=== PATIENT | female | born 1960 | race Caucasian/White ===

== ENCOUNTER → 2024-04-02 | Outpatient (CLI) | payer OTHER | END | disposition home or self-care (01) | LOC: CARD DIAG 11:16 | PROVIDERS: ATTEND Internal Medicine Cardiovascular Disease | DX: I08.0 Rheumatic disorders of both mitral and aortic valves (principal) | CPT/HCPCS: 93306 ==

== ENCOUNTER 2024-04-17 11:12 | Day surgery (SDC) | payer OTHER ==
[~2024-04-17] VITALS: Ht 165.1 cm; Wt 120.3 kg
[2024-04-17] VITALS (11 sets, daily range): BP systolic 107–141; BP diastolic 48–74; PULSE 58–63; RESP 14–19; TEMP 97.5; O2SAT 93–96
[2024-04-17] MEDS ORDERED: nitroGLYCERIN 0.4mg SUBLingual tab SL PRN (11:35)
[2024-04-17] MEDS: normal saline 1,000 ML IV SCH (11:40)
[2024-04-17 12:06] LABS: BASOPHILS % (AUTO) 0.4 % (0-1); EOSINOPHILS % (AUTO) 0.6 % (0-6); HEMATOCRIT 40.6 % (35.0-45.0); HEMOGLOBIN 13.3 g/dl (12.0-16.0); MEAN CORPUSCULAR HEMOGLOBIN 29.2 PG (27.0-31.0); MEAN CORPUSCULAR HGB CONC 32.8 g/dL (33.0-36.5); MEAN CORPUSCULAR VOLUME 89.1 FL (78-98); MEAN PLATELET VOLUME 7.3 FL (7.4-10.4); MONOCYTES # (AUTO) 0.4 X10'3 (0-0.9); MONOCYTES % (AUTO) 6.5 % (2-12); NEUTROPHILS # (AUTO) 4.2 X10'3 (1.8-7.7); NEUTROPHILS % (AUTO) 62.5 % (42-75); PLATELET COUNT 218 X10'3 (140-440); RED BLOOD COUNT 4.56 X10'6 (4.20-5.60); RED CELL DISTRIBUTION WIDTH 15.8 % (11.5-14.5); WHITE BLOOD COUNT 6.8 X10'3 (4.5-11.0)
[2024-04-17] MEDS ORDERED: FURO40TA4 PO (12:14)
[2024-04-17] MEDS ORDERED: DIVA500T9 PO (12:14)
[2024-04-17] MEDS ORDERED: ZINC7.5T (12:14)
[2024-04-17] MEDS ORDERED: OMEG-42 PO (12:14)
[2024-04-17] MEDS ORDERED: POTA-366 PO (12:14)
[2024-04-17] MEDS ORDERED: ATOR20TA66 PO (12:14)
[2024-04-17] MEDS ORDERED: GARL500C2 (12:14)
[2024-04-17] MEDS ORDERED: LISI10TA27 PO (12:14)
[2024-04-17] MEDS ORDERED: LACT1CAP73 PO (12:14)
[2024-04-17] MEDS ORDERED: ZIPR80CA10 PO (12:14)
[2024-04-17] MEDS ORDERED: LEVO100T9 PO (12:14)
[2024-04-17 12:21] LABS: ALBUMIN 3.6 G/DL (3.4-5.0); ANION GAP 10 (8-16); APTT 26 SECONDS (22-32); BLOOD UREA NITROGEN 23 MG/DL (7-18); BUN/CREATININE RATIO 22.8 (10.0-20.0); CALCIUM 9.6 MG/DL (8.5-10.1); CHLORIDE 104 MMOL/L (99-107); CREATININE 1.01 MG/DL (0.40-0.90); GLUCOSE 108 MG/DL (70-104); POTASSIUM 4.4 MMOL/L (3.5-5.1); SODIUM 141 MMOL/L (135-145); TOTAL CARBON DIOXIDE 26.6 MMOL/L (24-32); eCRCL 52 ML/MIN; eGFR 56 ML/MIN
[2024-04-17] MEDS ORDERED: fentaNYL/PF 50MCG/1 ML 2ML syringe ONE ×2 (13:29→14:05)
[2024-04-17] MEDS ORDERED: iohexol 350MG/ML 100ml bottle IV ONE ×2 (13:29→14:25)
[2024-04-17] MEDS ORDERED: midazolam 1 mg/ML 2ml injection ONE ×2 (13:29→14:04)
[2024-04-17] MEDS ORDERED: LIDOcaine 1% 30ml preserv. free vial ONE (13:29)
[2024-04-17] MEDS ORDERED: iohexol 350 MG/ML 50ML vial IV ONE (13:29)
[2024-04-17] MEDS: diphenhydrAMINE 25mg capsule PO PRN (13:39)
[2024-04-17] MEDS: LORazepam 0.5 MG tablet PO PRN (13:40)
== END 2024-04-17 19:45 | disposition home or self-care (01) ==
LOC: SSTAY O 11:12
PROVIDERS: ATTEND Internal Medicine Cardiovascular Disease
DX: I35.0 Nonrheumatic aortic (valve) stenosis (principal); I25.10 Atherosclerotic heart disease of native coronary artery without angina pectoris; I11.9 Hypertensive heart disease without heart failure; E78.5 Hyperlipidemia, unspecified; E03.9 Hypothyroidism, unspecified; E66.01 Morbid (severe) obesity due to excess calories; J44.9 Chronic obstructive pulmonary disease, unspecified; F31.9 Bipolar disorder, unspecified; Z86.73 Personal history of transient ischemic attack (TIA), and cerebral infarction without residual deficits; Z79.890 Hormone replacement therapy; Z79.899 Other long term (current) drug therapy; Z68.41 Body mass index [BMI] 40.0-44.9, adult
CPT/HCPCS: 36415; 71046; 80048; 83880; 85025; 85610; 85730; 93005; 93458; 93567; 93880; 99152; 99153; J1644; J2250; J3010; J3490; J7030; Q0163; Q9967; A6258; C1760; C1769

== ENCOUNTER 2024-05-23 10:36 | Outpatient (CLI) | payer OTHER ==
[~2024-05-23 10:36] MED LIST: ATOR20TA66 PO; DIVA500T9 PO; FURO40TA4 PO; GARL500C6; LACT1CAP73 PO; LEVO100T9 PO; LISI10TA27 PO; OMEG-42 PO; POTA-366 PO; ZINC7.5T; ZIPR80CA10 PO
[2024-05-23 11:10] LABS: BASOPHILS # (AUTO) 0.1 X10'3 (0-0.2); EOSINOPHILS # (AUTO) 0.1 X10'3 (0-0.9); EOSINOPHILS % (AUTO) 1.2 % (0-6); HEMATOCRIT 38.9 % (35.0-45.0); HEMOGLOBIN 12.9 g/dl (12.0-16.0); LYMPHOCYTES # (AUTO) 2.2 X10'3 (1.1-4.8); LYMPHOCYTES % (AUTO) 31.4 % (21-51); MEAN CORPUSCULAR HEMOGLOBIN 29.3 PG (27.0-31.0); MEAN CORPUSCULAR HGB CONC 33.2 g/dL (33.0-36.5); MEAN CORPUSCULAR VOLUME 88.2 FL (78-98); MONOCYTES # (AUTO) 0.5 X10'3 (0-0.9); MONOCYTES % (AUTO) 6.6 % (2-12); NEUTROPHILS # (AUTO) 4.1 X10'3 (1.8-7.7); NEUTROPHILS % (AUTO) 59.8 % (42-75); PLATELET COUNT 247 X10'3 (140-440); RED BLOOD COUNT 4.41 X10'6 (4.20-5.60); RED CELL DISTRIBUTION WIDTH 16.1 % (11.5-14.5); WHITE BLOOD COUNT 6.9 X10'3 (4.5-11.0)
[2024-05-23 11:21] LABS: APTT 26 SECONDS (22-32); PROTHROMBIN TIME 9.8 SECONDS (9.0-12.0)
[2024-05-23] MEDS ORDERED: IODIXANOL 320 MG/ML INFUS..BTL 100ML IV ONE (11:23)
[2024-05-23 11:26] LABS: ALANINE AMINOTRANSFERASE 21 U/L (12-78); ALBUMIN 3.5 G/DL (3.4-5.0); ALBUMIN/GLOBULIN RATIO 0.9 (1.1-1.5); ALKALINE PHOSPHATASE 62 IU/L (46-116); ANION GAP 8 (8-16); ASPARTATE AMINO TRANSFERASE 15 U/L (10-37); BILIRUBIN,TOTAL 0.6 MG/DL (0.1-1.0); BLOOD UREA NITROGEN 18 MG/DL (7-18); BUN/CREATININE RATIO 18.4 (10.0-20.0); CALCIUM 9.5 MG/DL (8.5-10.1); CHLORIDE 106 MMOL/L (99-107); CREATININE 0.98 MG/DL (0.40-0.90); GLUCOSE 107 MG/DL (70-104); POTASSIUM 4.5 MMOL/L (3.5-5.1); SODIUM 143 MMOL/L (135-145); TOTAL CARBON DIOXIDE 28.7 MMOL/L (24-32); TOTAL PROTEIN 7.4 G/DL (6.4-8.2); eGFR 58 ML/MIN
[2024-05-23 11:53] LABS: INR 0.9 INR
== END 2024-05-23 23:59 | disposition home or self-care (01) ==
LOC: 64 CT 10:36
PROVIDERS: ATTEND Internal Medicine Cardiovascular Disease
DX: I35.0 Nonrheumatic aortic (valve) stenosis (principal); R06.02 Shortness of breath; I65.29 Occlusion and stenosis of unspecified carotid artery; R91.1 Solitary pulmonary nodule; Z90.49 Acquired absence of other specified parts of digestive tract
CPT/HCPCS: 36415; 71275; 74174; 75572; 80053; 85025; 85610; 85730; Q9967

== ENCOUNTER 2024-07-05 05:45 | Inpatient (IN) | payer OTHER ==
[2024-07-03 15:21] LABS: BASOPHILS % (AUTO) 0.5 % (0-1); EOSINOPHILS # (AUTO) 0.1 X10'3 (0-0.9); EOSINOPHILS % (AUTO) 0.8 % (0-6); LYMPHOCYTES # (AUTO) 2.2 X10'3 (1.1-4.8); MEAN CORPUSCULAR HGB CONC 33.4 g/dL (33.0-36.5); MEAN CORPUSCULAR VOLUME 89.9 FL (78-98); MEAN PLATELET VOLUME 7.2 FL (7.4-10.4); MONOCYTES # (AUTO) 0.5 X10'3 (0-0.9); MONOCYTES % (AUTO) 6.4 % (2-12); NEUTROPHILS # (AUTO) 4.5 X10'3 (1.8-7.7); NEUTROPHILS % (AUTO) 62.3 % (42-75); PRE OP HEMATOCRIT 39.6 % (35.0-45.0); PRE OP HEMOGLOBIN 13.2 g/dL (12.0-16.0); PRE OP PLATELET COUNT 261 X10'3 (140-440); PRE OP WHITE BLOOD COUNT 7.2 10'3 (4.8-10.8); RED CELL DISTRIBUTION WIDTH 15.7 % (11.5-14.5)
[2024-07-03 15:23] LABS: BILIRUBIN,URINE NEGATIVE (Neg); CLARITY,URINE SLIGHTLY CLOUDY (Clear); COLOR,URINE YELLOW (Yellow); GLUCOSE, URINE NEGATIVE (Neg); KETONES,URINE 15 mg/dl (Neg); LEUKOCYTE ESTERASE ,URINE TRACE (Neg); NITRITES, URINE NEGATIVE (Neg); OCCULT BLOOD,URINE TRACE-INTACT (Neg); PROTEIN,URINE NEGATIVE (Neg); UROBILINOGEN,URINE 0.2 E.U/dL (0.2-1.0)
[2024-07-03 15:26] LABS: UA COLLECTION TYPE CLN CATCH MIDSTREAM
[2024-07-03 15:30] LABS: SQUAMOUS EPITHELIAL CELL,UR MANY /LPF (FEW)
[2024-07-03 15:31] LABS: BACTERIA,URINE FEW /HPF (Neg); RBC,URINE 0-2 /HPF (0-2); WBC,URINE 0-4 /HPF (0-4)
[2024-07-03 15:53] LABS: PRE OP INR 0.9 INR; PRE OP PROTIME 9.8 SECONDS (9.0-12.0)
[2024-07-03 16:01] LABS: ALBUMIN 3.6 G/DL (3.4-5.0); ALBUMIN/GLOBULIN RATIO 0.9 (1.1-1.5); ALKALINE PHOSPHATASE 67 IU/L (46-116); BLOOD UREA NITROGEN 23 MG/DL (7-18); BUN/CREATININE RATIO 26.1 (10.0-20.0); CALCIUM 9.4 MG/DL (8.5-10.1); CHLORIDE 105 MMOL/L (99-107); CREATININE 0.88 MG/DL (0.40-0.90); PRE OP ALT 23 U/L (30-65); PRE OP ANION GAP 9 (8-16); PRE OP AST 18 U/L (10-37); PRE OP BILIRUB, TOTAL 0.4 MG/DL (0.0-1.0); PRE OP GLUCOSE 99 MG/DL (70-104); PRE OP POTASSIUM 4.7 MMOL/L (3.4-5.1); PRE OP SODIUM 143 MMOL/L (135-145); PRO BRAIN NATRIURETIC PEPTIDE 222 PG/ML (0-125); TOTAL CARBON DIOXIDE 29.1 MMOL/L (24-32); TOTAL PROTEIN 7.6 G/DL (6.4-8.2); eGFR 65 ML/MIN
[2024-07-05] VITALS (15 sets, daily range): BP systolic 117–147; BP diastolic 64–109; PULSE 57–77; RESP 10–22; TEMP 97.2–98.2; O2SAT 93–99
[~2024-07-05] VITALS: Ht 165.1 cm; Wt 120.2 kg
[2024-07-05] MEDS: ringers solution, lacted 1,000 ML IV SCH (05:30)
[2024-07-05] MEDS: nitroPRUSSIDE (NIPRIDE) (200MCG/ML) 100ML Drip IV SCH (05:30)
[2024-07-05] MEDS: phenylephrine inj 50 MG in normal saline 250ml IV solN IV SCH (05:30)
[~2024-07-05 05:45] MED LIST changes: -GARL500C6; -LACT1CAP73 PO; -ZINC7.5T; +ZIPR20CA12 PO; -ZIPR80CA10 PO; +ondansetron/PF 4mg/2ml inj IV PRN
[2024-07-05] MEDS: Cefazolin 3 GM/100ML NS IVPB 100 ML IV ONE (06:05)
[2024-07-05] MEDS: aspirin 325mg tablet PO ONE (06:55)
[2024-07-05] MEDS: famotidine 20mg tablet PO ONE (06:55)
[2024-07-05] MEDS: vancomycin 1,500 MG in NS 300ml IV soln IV ONE (06:55)
[2024-07-05] MEDS: protamine sulfate 10mg/ml inj. ONE (07:44)
[2024-07-05] MEDS ORDERED: LIDOcaine 1% (10mg/ml) 2ml vial ONE ×2 (08:21→08:42)
[2024-07-05] MEDS ORDERED: midazolam 1 mg/ML 2ml injection ONE (08:24)
[2024-07-05] MEDS ORDERED: fentaNYL/PF 50MCG/1 ML 2ML syringe ONE (08:24)
[2024-07-05] MEDS ORDERED: heparin 1,000 UNITS/NS 500ml 1,500 ML ONE (08:39)
[2024-07-05] MEDS ORDERED: iohexol 350MG/ML 100ml bottle IV ONE (08:39)
[2024-07-05] MEDS ORDERED: sevoflurane 250ml liquid IH ONE (08:40)
[2024-07-05] MEDS ORDERED: heparin 1,000unit/ml 10ml vial 10 ML ONE (09:05)
[2024-07-05] MEDS ORDERED: propofol inj 20 ML IV ONE (09:05)
[2024-07-05] MEDS ORDERED: proCHLORperazine 10 MG/2 ml inj IV PRN (10:00)
[2024-07-05] MEDS ORDERED: magnesium sulf-water 4G/100mL 100 ML IV PRN (10:00)
[2024-07-05] MEDS ORDERED: potassium Cl 20mEq/100mL bag 100 ML IV PRN (10:00)
[2024-07-05] MEDS ORDERED: hydrALAZINE 20mg/ml inj. IV PRN (10:00)
[2024-07-05] MEDS ORDERED: ALPRAZolam 0.25mg tablet PO PRN (10:00)
[2024-07-05] MEDS ORDERED: pantoprazole 40mg Tablet.DR PO PRN (10:00)
[2024-07-05] MEDS ORDERED: potassium CL 10mEq/100ml bag 100 ML IV PRN (10:00)
[2024-07-05] MEDS ORDERED: potassium Cl 40MEQ/1/2NS 520ml 520 ML IV PRN (10:00)
[2024-07-05] MEDS ORDERED: potassium Cl 40MEQ/270ML bag 250 ML IV PRN (10:00)
[2024-07-05] MEDS ORDERED: magnesium sulf-water 2g/50mL 50 ML IV PRN (10:00)
[2024-07-05] MEDS ORDERED: labetalol 20mg/4ml (5mg/ml) syringe IV PRN (10:00)
[2024-07-05] MEDS ORDERED: diphenhydrAMINE 25mg capsule PO PRN (10:00)
[2024-07-05] MEDS: normal saline 1000ml 1,000 ML IV SCH (10:00)
[2024-07-05] MEDS ORDERED: potassium Cl 20 mEq SR tablet PO PRN (10:00)
[2024-07-05] MEDS ORDERED: docusate sod 100mg capsule PO PRN (10:00)
[2024-07-05] MEDS ORDERED: ondansetron/PF 4mg/2ml inj IV PRN (10:00)
[2024-07-05] MEDS: ceFAZolin 1GM/D5W- ADD-VANTAGE 50 ML IV SCH (16:48)
[2024-07-05] MEDS: sod chloride 0.9% 10ml flush syringe IV SCH (16:56)
[2024-07-05] MEDS: vancomycin/NS 1 GM ADD-VANTAGE 250 ML IV SCH (21:10)
[2024-07-05] MEDS: divalproex sod 250mg ER (24-hour) tablet PO SCH (21:11)
[2024-07-05] MEDS: ziprasidone 20mg capsule PO SCH (21:11)
[2024-07-05] MEDS: lisinopril 10 MG tablet PO SCH (21:13)
[2024-07-05] MEDS: atorvastatin 20mg tablet PO SCH (21:13)
[2024-07-06 02:00] VITALS: BP 123/67; PULSE 63; RESP 23; TEMP 97.3; O2SAT 93
[2024-07-06 05:37] LABS: BASOPHILS % (AUTO) 0.2 % (0-1); EOSINOPHILS % (AUTO) 0.2 % (0-6); HEMATOCRIT 33.2 % (35.0-45.0); LYMPHOCYTES # (AUTO) 1.3 X10'3 (1.1-4.8); LYMPHOCYTES % (AUTO) 18.4 % (21-51); MEAN CORPUSCULAR HEMOGLOBIN 29.3 PG (27.0-31.0); MEAN CORPUSCULAR HGB CONC 33.1 g/dL (33.0-36.5); MEAN CORPUSCULAR VOLUME 88.5 FL (78-98); MEAN PLATELET VOLUME 7.5 FL (7.4-10.4); MONOCYTES # (AUTO) 0.5 X10'3 (0-0.9); MONOCYTES % (AUTO) 7.5 % (2-12); NEUTROPHILS # (AUTO) 5.1 X10'3 (1.8-7.7); NEUTROPHILS % (AUTO) 73.7 % (42-75); PLATELET COUNT 164 X10'3 (140-440); RED BLOOD COUNT 3.76 X10'6 (4.20-5.60); RED CELL DISTRIBUTION WIDTH 15.3 % (11.5-14.5)
[2024-07-06 06:00] VITALS: BP 134/48; PULSE 60; RESP 18; TEMP 97.9; O2SAT 93
[2024-07-06 06:13] LABS: ALANINE AMINOTRANSFERASE 18 U/L (12-78); ALBUMIN 2.6 G/DL (3.4-5.0); ALBUMIN/GLOBULIN RATIO 0.8 (1.1-1.5); ALKALINE PHOSPHATASE 49 IU/L (46-116); ANION GAP 9 (8-16); ASPARTATE AMINO TRANSFERASE 17 U/L (10-37); BILIRUBIN,TOTAL 0.7 MG/DL (0.1-1.0); BLOOD UREA NITROGEN 13 MG/DL (7-18); BUN/CREATININE RATIO 16.7 (10.0-20.0); CALCIUM 8.6 MG/DL (8.5-10.1); CHLORIDE 107 MMOL/L (99-107); CREATININE 0.78 MG/DL (0.40-0.90); GLUCOSE 109 MG/DL (70-104); MAGNESIUM 1.8 MG/DL (1.5-2.4); POTASSIUM 4.2 MMOL/L (3.5-5.1); PRO BRAIN NATRIURETIC PEPTIDE 495 PG/ML (0-125); SODIUM 142 MMOL/L (135-145); TOTAL CARBON DIOXIDE 26.3 MMOL/L (24-32); TOTAL PROTEIN 5.8 G/DL (6.4-8.2); eCRCL 67 ML/MIN; eGFR 75 ML/MIN
[2024-07-06 06:30] VITALS: O2SAT 95
[2024-07-06] MEDS: acetaminophen 325mg tablet PO PRN (07:29)
[2024-07-06] MEDS: potassium chloride 10mEq ER tablet PO SCH (07:31)
[2024-07-06] MEDS: levoTHYROXINE 100mcg tablet PO SCH (07:31)
[2024-07-06] MEDS: furosemide 40mg tablet PO SCH (07:31)
[2024-07-06] MEDS: OMEGA-3/DHA/EPA/FISH OIL 1 EACH CAPSULE.DR PO SCH (07:31)
[2024-07-06] MEDS: aspirin 81mg tab.chew PO SCH (07:33)
[2024-07-06 08:01] VITALS: RESP 18; O2SAT 93
[2024-07-06 11:00] VITALS: BP 130/76; PULSE 62; RESP 16; TEMP 97.3; O2SAT 94
[2024-07-06] MEDS ORDERED: ASPI81TA53 PO (12:53)
[2024-07-06 15:00] VITALS: BP 138/72; PULSE 64; RESP 10; TEMP 98.3; O2SAT 97
== END 2024-07-06 16:15 | disposition home or self-care (01) | DRG 266 ==
LOC: PAS IN 05:45 → PCU 3S 11:27
PROVIDERS: ADMIT Internal Medicine Cardiovascular Disease; ATTEND Internal Medicine Cardiovascular Disease
PROC: 027F3ZZ Dilation of Aortic Valve, Percutaneous Approach (ICD-10-PCS; 2024-07-05)
PROC: B41D1ZZ Fluoroscopy of Aorta and Bilateral Lower Extremity Arteries using Low Osmolar Contrast (ICD-10-PCS; 2024-07-05)
PROC: 03HY32Z Insertion of Monitoring Device into Upper Artery, Percutaneous Approach (ICD-10-PCS; 2024-07-05)
PROC: 02RF38N Replacement of Aortic Valve with Zooplastic Tissue, using Rapid Deployment Technique, Percutaneous Approach (ICD-10-PCS; principal; 2024-07-05 08:40)
DX: I35.0 Nonrheumatic aortic (valve) stenosis (principal); Z00.6 Encounter for examination for normal comparison and control in clinical research program; I50.33 Acute on chronic diastolic (congestive) heart failure; E03.9 Hypothyroidism, unspecified; E78.5 Hyperlipidemia, unspecified; F31.9 Bipolar disorder, unspecified; I10 Essential (primary) hypertension; Z88.5 Allergy status to narcotic agent; I11.0 Hypertensive heart disease with heart failure
CPT/HCPCS: 33361; 36415; 71045; 71046; 76937; 80053; 81001; 82948; 83735; 83880; 84443; 85025; 85347; 85610; 85730; 86885; 86900; 86901; 86920; 87081; 87088; 93005; 93308; A4618; A6258; A6402; A6449; C1756; C1760; C1769; C1894; G0378; J0690; J1100; J1644; J2250; J2371; J2405; J2704; J2720; J3010; J3370; J3490; J7030; J7040; J7050; J7120; Q9967